=== PATIENT | male | born 1960 | race African-American/Black ===

== ENCOUNTER 2017-10-25 08:18 | Day surgery (SDC) | payer BC ==
--- NOTE | 2017-10-25 10:14 | Operative Note ---
Flex Sigmoidoscopy ([facility]) Procedure date: 10/25/17 Date of : 60 Procedure:Flex Sigmoidoscopy Flexible sigmoidoscopy with cold biopsies Indications: Mr. Valdivia is a 57-year-old gentleman with a history of chronic diarrhea. He developed rectal bleeding and rectal pain. He had a colonoscopy [address] Jesse Betancur but continued to have bleeding. He reported constipation followed by diarrhea. He had a hemorrhoidectomy in 1990. He underwent colonoscopy with il on March 21, 2017 and had left-sided ulcerative colitis and a posterior midline anal fissure/anal ulcer with a distal rectal polyp. This was an inflammatory polyp. He also had grade 1 internal hemorrhoids. The patient was started on Apriso and had been on prednisone for his arthritis. 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 The patient did see Claudia MICHELLE recently because of a flareup and he was not fully compliant with taking the Apriso. He was placed back on prednisone and has had clinical improvement. His symptoms were rectal bleeding, rectal pain, diarrhea and abdominal cramps. He has been on methotrexate for rheumatoid arthritis. The patient recently blood work showed a sedimentation rate of 99 and C-reactive protein of 2.8. He did have hematocrit 42 with microcytic indices and some iron deficiency (total iron 48). Performing Provider: Rosalva John MD Referrring Provider: Elver Portillo M.D. Sedation: Fentanyl 100 mg IV/Versed 6 mg IV Procedure: Prior to the procedure, a history and physical exam was performed, and patient medications and allergies were reviewed. The risks and benefits of the procedure and the sedation options and risks were discussed with the patient. All questions were answered and informed consent was obtained. Patient identification and proposed procedure were verified by the physician and the nurse. The patient was placed in a left lateral decubitus position. Throughout the procedure, the patient's blood pressure, pulse, and oxygen saturations were monitored continuously. Findings: On digital rectal examination there was recurrent posterior midline ulcer/ fissure. There is normal to slightly increased rectal tone. The endoscope was then passed through the anal canal into the rectum and advanced to the transverse colon at 90 cm. There appeared to be loss of vascular pattern with granular appearing mucosa throughout indicative of pancolitis which was mild except in the distal sigmoid and rectum where it was moderate. Cold biopsies were taken from the transverse colon and from the rectosigmoid and rectum and placed in separate bottles. There was a distal rectal polyp that was again biopsied separately. There were grade 1 internal hemorrhoids. Impressions: 1. 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 Anal ulcer/fissure 3. Rectal polyprule out inflammatory polyp Recommendations: The patient does have a positive p-ANCA. I would like to make sure that we have sensitive serologic testing since this may be Crohn's disease if there are positive Crohn's serologies especially with the anal ulcer. I will recheck this and make sure it was performed at [facility]. I do feel that he will need a biologic and this would certainly be indicated with his concomitant rheumatoid arthritis. I do feel that a anti-TNF biologic is warranted or Stellara. I would also consider Entyvio. I would continue Apriso and prednisone. Complications: None EBL (ml): 0 at 1014
[2017-10-25 13:44] VITALS: BP 165/78
== END 2017-10-25 11:40 | disposition home or self-care (01) ==
LOC: SDC 08:18
PROVIDERS: Internal Medicine Gastroenterology
PROC: 0DBL8ZX Excision of Transverse Colon, Via Natural or Artificial Opening Endoscopic, Diagnostic (ICD-10-PCS; 2017-10-25)
PROC: 0DBN8ZX Excision of Sigmoid Colon, Via Natural or Artificial Opening Endoscopic, Diagnostic (ICD-10-PCS; 2017-10-25)
PROC: 0DBP8ZX Excision of Rectum, Via Natural or Artificial Opening Endoscopic, Diagnostic (ICD-10-PCS; principal; 2017-10-25 10:00)
DX: K52.9 Noninfective gastroenteritis and colitis, unspecified (principal); K62.6 Ulcer of anus and rectum; D12.8 Benign neoplasm of rectum
CPT/HCPCS: J2405